=== PATIENT | female | born 1995 | race American Indian/Alaskan Native ===

== ENCOUNTER 2017-05-01 23:46 | Emergency (ER) | payer BC ==
[2017-05-01 23:49] VITALS: BMI 25.9
[2017-05-01] MEDS ORDERED: Oxycodone/Acetaminophen 5/325 mg Tab PO STA (23:59)
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
[2017-05-02 01:19] VITALS: BP 106/70; PULSE 68; RESP 18; TEMP 97.9; O2SAT 99
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
== END 2017-05-02 01:17 | disposition home or self-care (01) ==
LOC: ED 23:46
DX: R07.81 Pleurodynia (principal)
CPT/HCPCS: 71101; 96372; 99283; J1885